=== PATIENT | male | born 1950 | race Caucasian/White ===

== ENCOUNTER 2018-04-03 10:20 | Emergency (ER) | payer OTHER, MEDICARE ==
[~2018-04-03] VITALS: Ht 175.3 cm; Wt 84.1 kg
[2018-04-03 10:28] VITALS: BP 176/78; TEMP 98.3
[2018-04-03] MEDS ORDERED: PROSCAR 5MG5 MG PO (10:42)
[2018-04-03] MEDS ORDERED: FLOMAX 0.40.4 MG/CAP PO (10:42)
[2018-04-03] MEDS ORDERED: DOXYCYCLINE 10100 MG PO (11:23)
[2018-04-03 11:36] VITALS: PULSE 76
== END 2018-04-03 11:37 | disposition home or self-care (01) ==
LOC: COL.ER 10:20
DX: S30.861A Insect bite (nonvenomous) of abdominal wall, initial encounter (principal); Z98.890 Other specified postprocedural states; W57.XXXA Bitten or stung by nonvenomous insect and other nonvenomous arthropods, initial encounter